=== PATIENT | female | born 1980 | race Caucasian/White ===

== ENCOUNTER 2018-04-16 21:57 | Emergency (ER) | payer BC ==
[~2018-04-16] VITALS: Ht 172.7 cm; Wt 78.0 kg
[~2018-04-16 21:57] MED LIST: ALBUTEROL INH IH; AUGMENTIN 875875 M1; SERTRALINE HCL50 MG PO; ZOFRAN4 MG PO; ZPAK PO
[2018-04-16] MEDS ORDERED: NABUMETONE 750750 M1 PO (23:54)
[2018-04-17 00:58] VITALS: BP 129/78
== END 2018-04-17 00:58 | disposition home or self-care (01) ==
LOC: M.ERS 21:57
DX: M79.675 Pain in left toe(s) (principal); F41.9 Anxiety disorder, unspecified; F17.210 Nicotine dependence, cigarettes, uncomplicated; Z88.5 Allergy status to narcotic agent; Z88.8 Allergy status to other drugs, medicaments and biological substances